=== PATIENT | male | born 1950 | race Caucasian/White ===

== ENCOUNTER 2024-11-13 13:36 | Outpatient (CLI) | payer MEDICARE, OTHER, SELFPAY ==
--- NOTE | 2024-11-13 13:46 | MR_ITS ---
FINAL REPORT CLINICAL HISTORY: NECK PAIN left arm pain , with numbness and cool sensation FINDINGS: Multi planar MR imaging was obtained of the cervical spine. There is abnormal decreased signal throughout the cervical discs. There is moderate disc space narrowing at C4-5, C5-6, and C6-7. The vertebrae are of normal height. There is no malalignment. The cervical cord demonstrates normal signal and configuration. C2-C3: There is no evidence of significant disc bulge or protrusion. There is no significant facet hypertrophy. C3-C4: Mild broad-based midline disc protrusion with mild spinal canal compromise. C4-C5: Moderate midline disc protrusion. Moderate spinal and high-grade bilateral neuroforaminal narrowing. C5-C6: Moderate diffuse disc bulge with endplate hypertrophy. High-grade bilateral neuroforaminal narrowing. C6-C7: Diffuse disc bulge with endplate hypertrophy. High-grade bilateral neuroforaminal narrowing. C7-T1: There is no evidence of significant disc bulge or protrusion. There is no significant facet hypertrophy. IMPRESSION: Midline disc protrusion at at C4-5 with moderate spinal canal compromise. High-grade bilateral neuroforaminal narrowing at C4-5, C5-6, and C6-7. Reviewed, Interpreted and Dictated by Refugio Flores MD Transcribed by Kiarra Vázquez Authenticated and [facility]
== END 2024-11-13 23:59 | disposition home or self-care (01) ==
LOC: RAD 13:40
PROVIDERS: PCP Nurse Practitioner; Visit Provider Nurse Practitioner
DX: M54.2 Cervicalgia (principal); R20.2 Paresthesia of skin
CPT/HCPCS: 72141

== ENCOUNTER 2024-11-25 08:56 | Outpatient (POV) | payer MEDICARE, OTHER, SELFPAY ==
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
[2024-11-25 10:54] VITALS: BP 119/74; PULSE 73; RESP 18; O2SAT 96; BMI 23.0
== END 2024-11-25 23:59 | disposition home or self-care (01) ==
LOC: SC.PAIN 08:59
PROVIDERS: PCP Nurse Practitioner; Visit Provider Nurse Practitioner Family
DX: M50.10 Cervical disc disorder with radiculopathy, unspecified cervical region (principal); R51.9 Headache, unspecified; G89.29 Other chronic pain; Z73.89 Other problems related to life management difficulty
CPT/HCPCS: 99202; G0463

== ENCOUNTER 2024-12-22 10:27 | Day surgery (SDC) | payer MEDICARE, OTHER, SELFPAY ==
[2024-12-22 10:39] VITALS: BP 124/66; PULSE 60; RESP 16; TEMP 36.5; O2SAT 96; BMI 22.3
[2024-12-22] MEDS: IOPAMIDOL-200 (41%);10ML VIAL 10 ML IV (10:56)
[2024-12-22 10:58] VITALS: BP 149/77; PULSE 66; RESP 16; O2SAT 99
--- NOTE | 2024-12-22 11:25 | P.PCN_ITS ---
Procedure Date: 12/22/24 Time: 11:00 Anesthesiologist:: Lasha Luna CRNA Complications:: None Pre-procedure Diagnosis:: Degenerative disc cervical spine multilevels. Cervical radiculopathy. Post-procedure Diagnosis:: Same. Indications for Procedure:: Patient is a very pleasant 74-year-old male who comes our clinic today for cervical epidural steroid injection. Patient describes posterior cervical neck pain as well as left arm radicular symptoms. He rates his pain 7/10. Procedure Details:: Procedure:Cervical epidural steroid injection Informed consent was obtained and the risks and benefits of the procedure were explained to the patient. The patient was taken to the procedure room and noninvasive monitors placed, including noninvasive blood pressure cuff and pulse oximeter. The neck was prepped using Chloraprep as a cleansing solution. The C6- C7 interspace was viewed using fluroscopy. The skin and subcutaneous tissues were anesthetized using lidocaine 1.5% and a 25-gauge needle. After this an 18- gauge Touhy epidural needle was placed into the C6-C7 interspace under fluroscopy guidance and advanced using loss of resistance to air until the epidural space was encountered. After confirmation of needle placement in the ep idural space using contrast dye, a solution containing normal saline, 2 mL and Depo-Medrol 80 mg was incrementally injected into the cervical epidural space.~ The patient tolerated the procedure well with no complications. The patient was observed in the Pain Clinic and then discharged home neurologically intact. Plan and Disposition:: Patient was discharged without incident.
[2024-12-22 12:41] VITALS: BP 151/87; PULSE 58; RESP 18; O2SAT 95
[2024-12-22] MEDS: methylPREDNISolone ACETATE 80MG/ML VIAL 80 MG (12:41)
[2024-12-22 12:42] VITALS: BP 151/87; PULSE 58; RESP 18; O2SAT 95
== END 2024-12-22 10:58 | disposition home or self-care (01) ==
LOC: SC.PAINP 10:28
PROVIDERS: PCP Nurse Practitioner; Visit Provider Nurse Anesthetist, Certified Registered
DX: M50.30 Other cervical disc degeneration, unspecified cervical region (principal); M54.12 Radiculopathy, cervical region
CPT/HCPCS: 62321; J1010; Q9966

== ENCOUNTER 2025-01-04 15:16 | Outpatient (POV) | payer MEDICARE, OTHER, SELFPAY ==
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
[2025-01-04 15:47] VITALS: BP 122/65; PULSE 67; RESP 14; O2SAT 97; BMI 22.3
== END 2025-01-04 23:59 | disposition home or self-care (01) ==
PROVIDERS: PCP Nurse Practitioner; Visit Provider Nurse Practitioner Family
DX: M50.10 Cervical disc disorder with radiculopathy, unspecified cervical region (principal); R51.9 Headache, unspecified; G89.29 Other chronic pain; M54.50 Low back pain, unspecified
CPT/HCPCS: 99212; G0463

== ENCOUNTER 2025-01-05 06:32 | Outpatient (CLI) | payer MEDICARE, OTHER, SELFPAY ==
--- NOTE | 2025-01-05 06:37 | CT_ITS ---
FINAL REPORT TECHNIQUE: Thin section axial images were obtained through the cervical spine without contrast. Multiplanar reconstruction images were obtained from the axial data. Exam was performed using dose reduction techniques. CLINICAL HISTORY: CERVICAL RADICULOPATHY BILATERAL ARM PAIN, NUMBNESS IN LEFT ARM DOWN TO HAND COMPARISON: MRI 11/13/2024 FINDINGS: There is no acute fracture or acute malalignment of the cervical spine. There is no evidence of unilateral or bilateral facet lock. Craniocervical junction is intact. There is multilevel degenerative disc disease which is most pronounced in the mid and lower cervical spine. There are disc osteophyte complexes at multiple levels. At C4-5, there is severe bilateral foraminal narrowing. At C5-6, there is mild central canal stenosis and severe bilateral foraminal narrowing. At C6-7, there is mild central canal stenosis and severe bilateral foraminal narrowing. No acute paraspinal abnormality is identified. Limited evaluation of the lung apices reveals emphysema. IMPRESSION: No acute fracture of the cervical spine. Multilevel degenerative disc disease as above. Please see recent MRI report. Reviewed, Interpreted and Dictated by Jamila Giles MD Transcribed by Tianna Alexander Authenticated and . [facility]
== END 2025-01-05 23:59 | disposition home or self-care (01) ==
LOC: RAD 06:33
PROVIDERS: PCP Nurse Practitioner; Visit Provider Neurological Surgery
DX: M54.12 Radiculopathy, cervical region (principal)
CPT/HCPCS: 72125

== ENCOUNTER 2025-03-01 06:54 | Outpatient (CLI) | payer MEDICARE, OTHER, SELFPAY ==
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
--- OUTSIDE RECORDS SUMMARY | 2025-03-01 06:57 | XMS_ITS | Data Portability ---
Author Organization [facility] [place] & AMILCAR Castillo ADMIN Address [address] [place] [id number] Care Team Providers Care Nursing Secretary Name Role Phone KASSY ELLINGTON Primary Care Provider Assessment No assessment recorded. Plan of Treatment Reminders Order Date Submit Date Provider Last Modified By Organization Details Last Modified Time Details Appointments FOLLOW UP 15 2025 01:00P M SONNY DAN MD Not available Not available Not available Lab urinalysi s, dipstick [address] [facility] [address] [facility] [facility] [address], [place], [address], 11/17/2024 13:21:40 PSA, serum or plasma [address] (Registration ), [address] [place], [address], 11/17/2024 13:21:40 Referral None recorded. Procedures bladder scan (PROC) [address] [facility] [address] [facility] [address], [place], [address], 11/17/2024 13:21:40 Surgeries None recorded. Imaging None recorded. Medication Orders None recorded. Patient TargetsNo targets recorded. Patient InstructionsNo instructions recorded. Reason for Referral None Reported. Results Created Date Observation Date Name Description Value Unit Range Abnormal Flag Note LastModifiedBy Organization Detail LastModifiedTime 11/17/19 25 11/17/2024 urina lysis , dipst ick Leukocytes (reference range) negati ve Not Available [facility] [address] [facility] [facility] [address], [place], [address], 11/17/2024 13:11:49 11/17/19 25 11/17/2024 urina lysis , dipst ick Nitrite (reference range:) negati ve Not Available [place] [address] [address] [facility] [address], [place], [address], 11/17/2024 13:11:49 11/17/19 25 11/17/2024 urina lysis , dipst ick Protein (reference range) trace Not Available [place] [address] [address] [facility] [address], [place], [address], 11/17/2024 13:11:49 11/17/19 25 11/17/2024 urina lysis , dipst ick pH (reference range 5-8.5) 5.0 Not Available [place] [address] [address] [facility] [address], [place], [address], 11/17/2024 13:11:49 11/17/19 25 11/17/2024 urina lysis , dipst ick Blood (reference range:) small Not Available [place] [address] [address] [facility] [address], [place], [address], 11/17/2024 13:11:49 11/17/19 25 11/17/2024 urina lysis , dipst ick Specific [place] (reference range) 1.000 Not Available [place] [address] [address] [facility] [address], [place], [address], 11/17/2024 13:11:49 11/17/19 25 11/17/2024 urina lysis , dipst ick Ketone (reference range) negati ve Not Available [place] [address] [address] [facility] [address], [place], [address], 11/17/2024 13:11:49 11/17/19 25 11/17/2024 urina lysis , dipst ick Bilirubin (reference range) negati ve Not Available [place] [address], [place], [address], 11/17/2024 13:11:49 11/17/19 25 11/17/2024 urina lysis , dipst ick Glucose (reference range) negati ve Not Available [place] [address] [address] [facility] [address], [place], [address], 11/17/2024 13:11:49 11/17/19 25 11/17/2024 urina lysis , dipst ick Color (reference range: yellow-brown ) Yellow Not Available [place] [address] [address] [facility] [address], [place], [address], 11/17/2024 13:11:49 11/17/19 25 11/17/2024 bladd er scan (PROC ) Calculated Residual Urine: 8 Not Available [place] [address] [address] [facility] [address], [place], [address], 11/17/2024 13:11:39 Result Notes None recorded. Problems Name Problem SNOMED Code Status Onset Date Resolution Date Notes Provider Name and Address Organization Details Recorded Time Malignant neoplasm of prostate 427272375 Active 025 SONNY DAN MD [address], [place], [address] , [facility] & [place] 13:21:03 Problem Notes None recorded. Procedures Surgical History Date Name Laterality Status Provider Name and Address Organization Details Recorded Time Hernia Repair completed Renate Bradford [facility] & [place] 11/04/2024 12:10:58 Imaging Results None recorded. Procedure Notes None recorded. Medical Equipment None Reported. Allergies No known drug allergies Medications Name Sig Start Date Stop Date Status Note LastModified by Organization Details LastModified Time albuterol sulfate 2.5 mg/3 mL (0.083 %) solution for nebulization Inhale 3 mL 3 times a day by nebulizatio n route. active Not Available Not Available No t Available aspirin 325 mg tablet Take 1 tablet every day by oral route. active Not Available Not Available No t Available gabapentin 400 mg capsule Take 1 capsule 3 times a day by oral route. active Not Available Not Available No t Available acetaminophe n 500 mg tablet Take 2 tablets every 6 hours by oral route. active Not Available Not Available Not Available Nexium 20 mg capsule,mahin yed release Take 1 capsule every day by oral route. active Not Available Not Available No t Available temazepam 15 mg capsule Take 1 capsule every day by oral route. active Not Available Not Available No t Available Vitals Date Recorded Body height Body mass index (BMI) Body weight Oxygen saturation Oxygen saturation in Arterial blood by Pulse oximetry Heart rate Systolic blood pressure Diastolic blood pressure Provider Name and Address Organization Details Last Updated DateTime 5 180.34 cm 22.3 kg/m2 34900.7 8 g 96 % 96 % 71 /min 124 mm[Hg] 78 mm[Hg] Renate Townsendarrez [place] [facility] & [place] 13:11:21 Social History None recorded. Functional Status None recorded. Mental Status None recorded. Family History Nothing Reported. Medical History No medical history recorded. Past Encounters Encounter ID Performer Location Encounter Start Date Encounter Closed Date Diagnosis/Indication Diagnosis SNOMED-CT Code Diagnosis ICD10 Code Diagnosis Note [id number] SONNY DAN MD [facility] [place] [address] 11/17/2024 12:38:29 11/17/2024 13:24:22 Malignant neoplasm of prostate 417703199 C61 patient is voiding well and is currently asymptomat ic. PSA is undetectab le. He will follow up in 1 year with PSA prior. I have encouraged him to contact us or come back sooner if he experience s any voiding difficulti es or gross hematuria. Health Concerns Section Related Observation LastModified by Organization Detai ls LastModified Time None Recorded Concern Status LastModified by Organization Details LastModified Time None Recorded Advance Directives Directive None Recorded Payers Insurance Date Sequence Insurance Name Policy Number Policy Porras Covered Member ID Porras Member ID Guarantor Name 12/02/2024 1 [place]ARE[place]ARE[place] Garcia Santizo [id number] Garcia Santizo 12/02/2024 2 [employer] - FOR LIFE (MEDICARE SUPPLEMENT) Garcia Santizo [id number] Garcia Santizo Notes Date Note Type Note Provider Name and Address Organization Details Recorded Time 11/17/2024 text/html 11/17/24 Patient is a 74-year-old male presents today as new patient with history of prostate cancer. most recent PSA on 10/30/2024 was undetectable. Patient currently denies any obstructive or irritative voiding symptoms. He denies any hematuria or dysuria. He recently relocated to [place] from [place] following the passage of his . 0 10/30/24 PSA <0. Cr 0.80, GFR PSA 0. PSA 0. Cr 0.70, GFR 96, Hgb 15.1, Hct 46.612 Prostate Cybernife completed SONNY DAN MD [address], [place], [address], [facility] - [place] & [place] 12/02/2024 08:19:08
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
--- OUTSIDE RECORDS SUMMARY | 2025-03-01 06:57 | XMS_ITS | Continuity of Care Document ---
Author Organization [place] [facility], [facility] Address [address] [place] [address] Assessment Encounter Date Assessment Date Assessment LastModified by Organization Details LastModified Time 01/12/2025 01/12/2025 Asad Santizo is a 74-year-old [...] baseline. Will obtain flexion/extensio n x-rays preoperatively. [email or web address] Not available 01/12/2025 14:52:20 Plan of Treatment Reminders Order Date Submit Date Provider Last Modified By Organization Details Last Modified Time Details Appointments None record ed. Lab None record ed. Referral None record ed. Procedures None record ed. Surgeries None record ed. Imaging None record ed. Medication Orders None record ed. Patient TargetsNo targets recorded. Patient InstructionsNo instructions recorded. Reason for Referral None Reported. Results Created Date Observation Date Name Description Value Unit Range Abnormal Flag Note LastModifiedBy Organization Detail LastModifiedTime 01/06/20 25 01/05/2025 CT, cervi jorge spine , w/o contr ast No observ ation record ed. [email or web address] [facility] [address], [place], [address], 01/26/2025 15:52:21 Result Notes None recorded. Medical Equipment None Reported. [...] Updated DateTime 01/12/2025 180.34 cm 22.7 kg/m2 50539.56 g 130 mm[Hg] 80 mm[Hg] Trish Valadez [facility] 09:30:20 Social History None recorded. Functional Status None recorded. Mental Status None recorded. Family History Nothing Reported. Medical History No medical history recorded. Past Encounters Encounter ID Performer Location Encounter Start Date Encounter Closed Date Diagnosis/Indication Diagnosis SNOMED-CT Code Diagnosis ICD10 Code Diagnosis Note [id number] ASAD KHALIL MD [facility] [address] [place] [address] 01/12/2025 09:21:17 01/13/2025 09:35:12 Cervical radiculopathy 67487521 M54.12 Health Concerns Section Related Observation LastModified by Organization Detai ls LastModified Time None Recorded Concern Status LastModified by Organization Details LastModified Time None Recorded Payers Encounter Date Sequence Insurance Name Policy Number Policy Porras Covered Member ID Porras Member ID Guarantor Name 01/12/2025 1 [place] Asad Santizo [id number] Asad Sukhdev 01/12/2025 2 [employer] - FOR LIFE (MEDICARE SUPPLEMENT) Asad Hahnert [id number] Asad Hahnert Notes Date Note Type Note Provider Name a wa Address Organization Details Recorded Time 01/12/2025 text/html Asad Santizo i s a [...] Otherwise, no myelopathic symptoms. ASAD KHALIL MD [address] [place], [address], [facility] 01/12/2025 14:53:19
== END 2025-03-01 23:59 | disposition home or self-care (01) ==
LOC: RAD 06:55
PROVIDERS: PCP Nurse Practitioner; Visit Provider Nurse Practitioner
DX: M99.73 Connective tissue and disc stenosis of intervertebral foramina of lumbar region (principal); M51.26 Other intervertebral disc displacement, lumbar region
CPT/HCPCS: 72148

== ENCOUNTER 2025-06-22 14:17 | Outpatient (CLI) | payer MEDICARE, OTHER, SELFPAY ==
--- NOTE | 2025-06-22 14:21 | MR_ITS ---
FINAL REPORT TECHNIQUE: Multiplanar and multisequence imaging of the brain was obtained without contrast. CLINICAL HISTORY: MEMORY CHANGE/ FAMILY HX DEMENTIA COMPARISON: None FINDINGS: There is mild global atrophy. There is no mass effect or midline shift. Foci of periventricular and subcortical white matter are nonspecific including abnormal signal in the central lucina. No hydrocephalus. The cerebellum and brainstem have an unremarkable appearance. There are no areas of restricted diffusion on diffusion weighted images to suggest acute infarct. Soft tissues are without acute abnormality. IMPRESSION: No acute intracranial abnormality. Nonspecific T2 abnormality within the periventricular and subcortical white matter. In this age group, this most likely represents chronic changes of small vessel ischemia. Reviewed, Interpreted and Dictated by Jamila Giles MD Transcribed by Suzie Chirinos Authenticated and [facility]
--- NOTE | 2025-06-22 15:03 | US_ITS ---
FINAL REPORT CLINICAL HISTORY: possible hernia FINDINGS: Limited sonographic images of the right groin were obtained. There is abnormal soft tissue in the right groin. On real-time images it appears to have peristalsis suggesting loop of bowel in a hernia. IMPRESSION: Findings concerning for a hernia containing GI tract. Consider CT. Reviewed, Interpreted and Dictated by Jamila Giles MD Transcribed by Kiarra Vázquez Authenticated and [facility]
== END 2025-06-22 23:59 | disposition home or self-care (01) ==
LOC: RAD 14:18
PROVIDERS: PCP Nurse Practitioner; Visit Provider Nurse Practitioner
DX: K46.9 Unspecified abdominal hernia without obstruction or gangrene (principal); F03.90 Unspecified dementia, unspecified severity, without behavioral disturbance, psychotic disturbance, mood disturbance, and anxiety; R93.5 Abnormal findings on diagnostic imaging of other abdominal regions, including retroperitoneum; R90.89 Other abnormal findings on diagnostic imaging of central nervous system
CPT/HCPCS: 70551; 76882

== ENCOUNTER 2025-07-09 08:19 | Outpatient (CLI) | payer MEDICARE, OTHER, SELFPAY ==
--- NOTE | 2025-07-09 08:22 | CT_ITS ---
FINAL REPORT TECHNIQUE: After the administration of oral and intravenous contrast, axial images were obtained through the abdomen and pelvis by computed tomography. The study was performed with techniques to keep radiation dose as low as reasonably achievable, (ALARA). Individual dose reduction techniques using automated exposure control or adjustment of mA and/or kV according to the patient's size were employed. CLINICAL HISTORY: right inguinal hernia COMPARISON: None FINDINGS: Abdomen: There is mild dependent edema at the lung bases. Multiple well-circumscribed low-attenuation structures are seen throughout the liver consistent with benign cysts measuring up to 2.4 cm. The gallbladder is present. The spleen, pancreas, adrenals and kidneys appear unremarkable. Dense vascular calcifications are seen in the abdominal aorta and iliac vessels. There is no free fluid or adenopathy. Pelvis: The appendix is is unremarkable. The wall of the urinary bladder is accentuated, likely related to decompressed bladder. There may be a minimal amount of fat extending into the left inguinal canal. The right inguinal canal is unremarkable. There is no free fluid or adenopathy. Grade 1 spondylolisthesis is noted of L5 on S1 with large disc bulge and high-grade bilateral neuroforaminal narrowing. IMPRESSION: No evidence of right inguinal hernia. Hepatic cysts. Degenerative changes at L5-S1 with high-grade bilateral neuroforaminal narrowing. Reviewed, Interpreted and Dictated by Refugio Flores MD Transcribed by Tianna Alexander Authenticated and [facility]
--- OUTSIDE RECORDS SUMMARY | 2025-07-09 08:59 | XMS_ITS | Clinical Summary ---
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 Name Role Phone Unavailable Primary Care Provider Unavailabl e Social History Tobacco Use Types Packs/Day Years Used Date Smoking Tobacco: Never Assessed Sex and Gender Information Value Date Recorded Sex Assigned at Not on file Legal Sex Male 2:07 PM CDT Gender Identity Not on file Sexual Orientation Not on file Plan of Treatment Health Maintenance Due Date Last Done Comments CT Colonography 1952 Colonoscopy 1952 Colorectal Cancer Screening 1952 FOBT/FIT 1952 Fit-DNA (Cologuard) 1952 Sigmoidoscopy 1952 Depression Screening (12+) 1964 Tobacco Cessation Counseling and Screening (12+) 08/25 Hepatitis C Screening 1970 DTAP/TDAP/TD VACCINES (1 - Tdap) 1971 Pneumococcal 50+ years (1 of 1 - PCV) 2002 Shingles Vaccine (Zoster) (1 of 2) 2002 Medicare Initial AWV [id number] 08/15/2018 Falls Risk Screening 10/14/2024 COVID-19 VACCINE ( - season) 2025 Influenza Vaccine (#1) 2025 Respiratory Syncytial Virus (RSV) Adult or (1 - 1-dose 75+ series) 2027 Insurance MEDICARE PART A B
--- OUTSIDE RECORDS SUMMARY | 2025-07-09 08:59 | XMS_ITS ---
Author Organization Unknown Problems Date Problem Result OnSetDate Icd10 SnomedCode Severity Cu stom 10/29/2024 00:00:00 Neck pain M54.2 10/29/2024 00:00:00 Paresthesia of arm R20.2 10/29/2024 00:00:00 Sciatica M54.30 10/29/2024 00:00:00 Insomnia G47.00 10/29/2024 00:00:00 Prostate ca C61 11/09/2024 00:00:00 HTN (hypertension) I10 01/06/2025 00:00:00 Neuropathy G62.9 01/06/2025 00:00:00 Herniated intervertebral disc of lumbar spine M51.26 01/06/2025 00:00:00 Memory change R41.3
--- OUTSIDE RECORDS SUMMARY | 2025-07-09 08:59 | XMS_ITS | Referral Summary ---
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
[2025-07-09 09:00] LABS: Blood Urea Nitrogen 11 mg/dl (9-20); Creatinine,Serum 0.80 mg/dl (0.66-1.25); Estimated Glomerular Filt Rate 95 ml/min (>60); GFR (African American) 115 ML/MIN (>60)
[2025-07-09] MEDS: SODIUM CHLORIDE 0.9% 10ML SYR (RAD ONLY) 10 ML IV (09:46)
[2025-07-09] MEDS: IOPAMIDOL-370 (76%);100ML BOTTLE 75 ML IV (09:46)
== END 2025-07-09 23:59 | disposition home or self-care (01) ==
LOC: RAD 08:20
PROVIDERS: PCP Nurse Practitioner; Visit Provider Nurse Practitioner
DX: K76.89 Other specified diseases of liver (principal); M47.817 Spondylosis without myelopathy or radiculopathy, lumbosacral region; M48.07 Spinal stenosis, lumbosacral region; K43.9 Ventral hernia without obstruction or gangrene
CPT/HCPCS: 36415; 74177; 82565; 84520; Q9967